=== PATIENT | female | born 1960 | race Hispanic/Latino ===

== ENCOUNTER 2020-08-14 16:23 | Outpatient (CLI) | payer OTHER ==
--- NOTE | 2020-08-14 17:34 | XRay Report ---
LUMBAR SPINE AP AND LATERAL VIEWS INDICATION / CLINICAL INFORMATION: LOWER BACK PAIN; ARTHROPATHY. COMPARISON: None available. FINDINGS: BONES/JOINT(S): No acute fracture or subluxation. There is moderate degenerative disc disease at L1-2 , L2-3, L3-4, L4-5, and L5-S1. There is degenerative retrolisthesis at L1-2, L2-3, and L3-4 and degen erative anterolisthesis at L4-5. SOFT TISSUES: No significant abnormality. ADDITIONAL FINDINGS: None. Signer Name: Asad Villanueva MD Signed: 08/14/2020 5:30 PM Workstation Name: [id number] [id number]
--- NOTE | 2020-08-14 17:36 | XRay Report ---
BILATERAL HANDS, 3 VIEWS EACH INDICATION / CLINICAL INFORMATION: ARTHROPATHY HAND. COMPARISON: None available. FINDINGS: BONES/JOINT(S): No acute fracture or subluxation. 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 There is no evidence of inflammatory arthr opathy. SOFT TISSUES: No significant abnormality. ADDITIONAL FINDINGS: None. Signer Name: Asad Villaneuva MD Signed: 08/14/2020 5:32 PM Workstation Name: [email or web address]
--- NOTE | 2020-08-14 17:36 | XRay Report ---
BILATERAL FEET, 3 VIEWS EACH INDICATION / CLINICAL INFORMATION: ARTHROPATHY; LOWER BACK PAIN. COMPARISON: None available. FINDINGS: BONES/JOINT(S): No acute fracture or subluxation. 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 There is mild DJD in both first MTP joints. SOFT TISSUES: No significant abnormality. ADDITIONAL FINDINGS: None. Signer Name: Asad Villanueva MD Signed: 08/14/2020 5:31 PM Workstation Name: [id number]
== END 2020-08-14 16:24 | disposition home or self-care (01) ==
LOC: XRAY 16:23
DX: M47.816 Spondylosis without myelopathy or radiculopathy, lumbar region (principal); M19.042 Primary osteoarthritis, left hand; M19.041 Primary osteoarthritis, right hand; M19.072 Primary osteoarthritis, left ankle and foot; M19.071 Primary osteoarthritis, right ankle and foot; M51.27 Other intervertebral disc displacement, lumbosacral region
CPT/HCPCS: 72100